=== PATIENT | female | born 1985 | race American Indian/Alaskan Native ===

== ENCOUNTER 2018-07-29 19:15 | Emergency (ER) | payer SELFPAY ==
[2018-07-29] MEDS ORDERED: Sodium Chloride 0.9% 10 ML Syringe FLUSH PRN (19:29)
[2018-07-29] MEDS ORDERED: Sodium Chloride 0.9% 1,000 ML IV SCH (19:30)
[2018-07-29] MEDS ORDERED: cefTRIAXone 2 GM Vial IV ONE (19:54)
[2018-07-29] MEDS ORDERED: Ketorolac 30 MG/ML SDV IVPUSH ONE (19:55)
[2018-07-29] MEDS ORDERED: cefTRIAXone 2 GM in Sodium Chloride 0.9% 100 ML IV ONE (20:49)
[2018-07-29] MEDS ORDERED: Ketorolac 60 MG/2 ML SDV IM ONE (20:53)
[2018-07-29] MEDS ORDERED: Phenazopyridine 95 MG Tab ONE (20:57)
[2018-07-29] MEDS ORDERED: cefTRIAXone 2 GM, Lidocaine 1% 2.1 ML IM SCH ×2 (21:00)
[2018-07-29] MEDS ORDERED: Phenazopyridine 95 MG Tab PO ONE (21:04)
--- NOTE | 2018-07-29 21:18 | EDM.PDOC ---
ED HPI GENERAL MEDICAL PROBLEM - General Chief Complaint: Abdominal Pain Stated Complaint: LEFT FRONT & SIDE PAIN Time Seen by Provider: 07/29/18 19:24 Source of Information: Reports: Patient History Limitations: Reports: No Limitations - History of Present Illness INITIAL COMMENTS - FREE TEXT/NARRATIVE: 32 y/o female presents with cc dysuria, lower abdominal pain and back pain for the past 5 days. She states she saw her PCP 3 days ago and was started on Amoxicillin. She states she is having chills and feels feverish but hasn't taken her temperature. 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 Onset Date: 07/25/18 Onset Time: 12:00 Duration: Getting Worse Location: Reports: Abdomen, Back Quality: Reports: Ache Severity: Mild Improves with: Reports: None Worsens with: Reports: None Associated Symptoms: Reports: Fever/Chills. Denies: Chest Pain, Cough, Nausea/ Vomiting, Shortness of Breath, Weakness Left Abdomen Pain Score (Numeric/FACES): 8 - Related Data Allergies Allergy/AdvReac Type Severity Reaction Status Date / Time ibuprofen [From Motrin] Allergy Nausea Verified 07/29/18 19:29 Home Meds: Home Meds Amoxicillin 500 mg PO BID 07/29/18 [History] Buprenorphine HCl/Naloxone HCl [Suboxone 4 mg-1 mg Sl Film] 1 applic PO BID 04/18 [History] Phenazopyridine HCl [Pyridium] 200 mg PO BID 3 Days #6 tablet 07/29/18 [Rx] Venlafaxine [Effexor] 225 mg PO DAILY 07/29/18 [History] lamoTRIgine [Lamictal] 100 mg PO DAILY 07/29/18 [History] Past Medical History Genitourinary History: Reports: UTI, Recurrent Psychiatric History: Reports: Anxiety, Depression - Past Surgical History GI Surgical History: Reports: Cholecystectomy Social & Family History - Tobacco Use Smoking Status *Q: Current Every Day Smoker Years of Tobacco use: 15 Packs/Tins Daily: 1 - Caffeine Use Caffeine Use: Reports: Coffee, Energy Drinks, Soda, Tea - Recreational Drug Use Recreational Drug Use: No ED ROS GENERAL - Review of Systems Review Of Systems: See Below Constitutional: Reports: Fever, Chills HEENT: Reports: No Symptoms Respiratory: Denies: Shortness of Breath Cardiovascular: Denies: Chest Pain Endocrine: Reports: No Symptoms GI/Abdominal: Reports: Abdominal Pain (lower pelvic pain). Denies: Constipation , Diarrhea, Decreased Appetite, Vomiting : Reports: Dysuria, Flank Pain, Frequency, Urgency Musculoskeletal: Reports: No Symptoms Skin: Reports: No Symptoms Neurological: Reports: No Symptoms Psychiatric: Reports: No Symptoms Hematologic/Lymphatic: Reports: No Symptoms Immunologic: Reports: No Symptoms ED EXAM, RENAL/ - Physical Exam Exam: See Below General Appearance: Alert, WD/WN, No Apparent Distress Neck: Normal Inspection, Supple, Non-Tender, Full Range of Motion Respiratory/Chest: No Respiratory Distress, Lungs Clear, Normal Breath Sounds, No Accessory Muscle Use, Chest Non-Tender Cardiovascular: Normal Peripheral Pulses, Regular Rate, Rhythm, No Edema, No Gallop, No JVD, No Murmur, No Rub GI/Abdominal: Normal Bowel Sounds, Soft, Non-Tender, No Organomegaly, No Distention, No Abnormal Bruit, No Mass, Pelvis Stable Back Exam: Normal Inspection, Full Range of Motion Extremities: Normal Inspection, Normal Range of Motion Neurological: Alert, Oriented, CN II-XII Intact, Normal Cognition, Normal Gait, Normal Reflexes Psychiatric: Normal Affect, Normal Mood Skin Exam: Warm, Dry, Intact, Normal Color, No Rash Lymphatic: No Adenopathy Course - Vital Signs Last Recorded V/S: Last Vital Signs Temp 97.2 F 07/29/18 19:23 Pulse 73 07/29/18 19:23 Resp 20 07/29/18 19:23 BP 106/65 07/29/18 19:23 Pulse Ox 100 07/29/18 19:23 - Orders/Labs/Meds Orders: Active Orders 24 hr Category Date Time Status Sodium Chloride 0.9% [Normal Saline] 1,000 ml Med 07/29/18 19:30 Active IV ASDIRECTED Sodium Chloride 0.9% [Saline Flush] Med 07/29/18 19:29 Active 10 ml FLUSH ASDIRECTED PRN cefTRIAXone [Rocephin] 2 gm Med 07/29/18 20:49 Active Sodium Chloride 0.9% [Normal Saline] 100 ml IV ONETIME cefTRIAXone [Rocephin] 2 gm Med 07/29/18 21:00 Active Lidocaine 1% [Xylocaine 1%] 2.1 ml IM Q24H Saline Lock Insert [OM.PC] Routine Oth 07/29/18 19:29 Ordered Medication Orders Ceftriaxone Sodium 2 gm/ (Lidocaine HCl 2.1 ml) 0 gm IM Q24H MAGO Last Admin: 07/29/18 21:06 Dose: Not Given Sodium Chloride (Normal Saline) 1,000 mls @ 999 mls/hr IV ASDIRECTED MAGO Ceftriaxone Sodium 2 gm/ (Sodium Chloride) 100 mls @ 200 mls/hr IV ONETIME ONE Stop: 07/29/18 21:18 Last Admin: 07/29/18 20:51 Dose: Not Given Sodium Chloride (Saline Flush) 10 ml FLUSH ASDIRECTED PRN PRN Reason: Keep Vein Open Labs: Laboratory Tests 07/29/18 07/29/18 07/29/18 Range/Units 19:50 19:50 20:20 WBC 4.75 (3.98-10.04) K/mm3 RBC 5.08 (3.98-5.22) M/mm3 Hgb 13.4 (11.2-15.7) gm/L Hct 40.9 (34.1-44.9) % MCV 80.5 (79.4-94.8) fl MCH 26.4 (25.6-32.2) pg MCHC 32.8 (32.2-35.5) g/dl RDW Std Deviation 42.4 (36.4-46.3) fL Plt Count 224 (182-369) K/mm3 MPV 10.2 (9.4-12.3) fl Neut % (Auto) 55.1 (34.0-71.1) % Lymph % (Auto) 35.2 (19.3-51.7) % Bartholomew % (Auto) 7.2 (4.7-12.5) % Eos % (Auto) 1.7 (0.7-5.8) Baso % (Auto) 0.6 (0.1-1.2) % Neut # (Auto) 2.62 (1.56-6.13) K/mm3 Lymph # (Auto) 1.67 (1.18-3.74) K/mm3 Bartholomew # (Auto) 0.34 (0.24-0.36) K/mm3 Eos # (Auto) 0.08 (0.04-0.36) K/mm3 Baso # (Auto) 0.03 (0.01-0.08) K/mm3 Sodium (136-145) mEq/L Potassium (3.5-5.1) mEq/L Chloride (98-107) mEq/L Carbon Dioxide (21-32) mEq/L Anion Gap (5-15) BUN (7-18) mg/dL Creatinine (0.55-1.02) mg/dL Est Cr Clr Drug Dosing mL/min Estimated GFR (MDRD) (>60) mL/min BUN/Creatinine Ratio (14-18) Glucose (74-106) mg/dL Calcium (8.5-10.1) mg/dL Total Bilirubin (0.2-1.0) mg/dL AST (15-37) U/L ALT (14-59) U/L Alkaline Phosphatase (46-116) U/L Total Protein (6.4-8.2) g/dl Albumin (3.4-5.0) g/dl Globulin gm/dL Albumin/Globulin Ratio (1-2) Urine Color Yellow (Yellow) Urine Appearance Clear (Clear) Urine pH 6.0 (5.0-8.0) Ur Specific Willcox > or = 1.030 (1.005-1.030) Urine Protein Trace H (Negative) Urine Glucose (UA) Negative (Negative) Urine Ketones Negative (Negative) Urine Occult Blood Negative (Negative) Urine Nitrite Negative (Negative) Urine Bilirubin Negative (Negative) Urine Urobilinogen 1.0 (0.2-1.0) Ur Leukocyte Esterase Negative (Negative) Urine RBC 0-5 (0-5) /hpf Urine WBC 0-5 (0-5) /hpf Ur Squamous Epith Cells 0-5 (0-5) /hpf Urine Bacteria Few H (FEW) /hpf Urine Mucus Moderate H (FEW) /hpf Urine HCG, Qual Negative (NEGATIVE) 07/29/18 Range/Units 20:20 WBC (3.98-10.04) K/mm3 RBC (3.98-5.22) M/mm3 Hgb (11.2-15.7) gm/L Hct (34.1-44.9) % MCV (79.4-94.8) fl MCH (25.6-32.2) pg MCHC (32.2-35.5) g/dl RDW Std Deviation (36.4-46.3) fL Plt Count (182-369) K/mm3 MPV (9.4-12.3) fl Neut % (Auto) (34.0-71.1) % Lymph % (Auto) (19.3-51.7) % Bartholomew % (Auto) (4.7-12.5) % Eos % (Auto) (0.7-5.8) Baso % (Auto) (0.1-1.2) % Neut # (Auto) (1.56-6.13) K/mm3 Lymph # (Auto) (1.18-3.74) K/mm3 Bartholomew # (Auto) (0.24-0.36) K/mm3 Eos # (Auto) (0.04-0.36) K/mm3 Baso # (Auto) (0.01-0.08) K/mm3 Sodium 140 (136-145) mEq/L Potassium 4.1 (3.5-5.1) mEq/L Chloride 104 (98-107) mEq/L Carbon Dioxide 28 (21-32) mEq/L Anion Gap 12.1 (5-15) BUN 13 (7-18) mg/dL Creatinine 0.8 (0.55-1.02) mg/dL Est Cr Clr Drug Dosing 93.63 mL/min Estimated GFR (MDRD) > 60 (>60) mL/min BUN/Creatinine Ratio 16.3 (14-18) Glucose 98 (74-106) mg/dL Calcium 8.7 (8.5-10.1) mg/dL Total Bilirubin 0.4 (0.2-1.0) mg/dL AST 32 (15-37) U/L ALT 44 (14-59) U/L Alkaline Phosphatase 116 (46-116) U/L Total Protein 7.8 (6.4-8.2) g/dl Albumin 3.6 (3.4-5.0) g/dl Globulin 4.2 gm/dL Albumin/Globulin Ratio 0.9 L (1-2) Urine Color (Yellow) Urine Appearance (Clear) Urine pH (5.0-8.0) Ur Specific Willcox (1.005-1.030) Urine Protein (Negative) Urine Glucose (UA) (Negative) Urine Ketones (Negative) Urine Occult Blood (Negative) Urine Nitrite (Negative) Urine Bilirubin (Negative) Urine Urobilinogen (0.2-1.0) Ur Leukocyte Esterase (Negative) Urine RBC (0-5) /hpf Urine WBC (0-5) /hpf Ur Squamous Epith Cells (0-5) /hpf Urine Bacteria (FEW) /hpf Urine Mucus (FEW) /hpf Urine HCG, Qual (NEGATIVE) Meds: Medications Generic Name Dose Route Start Last Admin Trade Name Quentinq PRN Reason Stop Dose Admin Ceftriaxone Sodium 2 gm/ 0 gm 07/29/18 21:00 07/29/18 21:06 Lidocaine HCl 2.1 ml IM Not Given Q24H MAGO Sodium Chloride 1,000 mls @ 999 mls/hr 07/29/18 19:30 Normal Saline IV ASDIRECTED MAGO Ceftriaxone Sodium 2 gm/ 100 mls @ 200 mls/hr 07/29/18 20:49 07/29/18 20:51 Sodium Chloride IV 07/29/18 21:18 Not Given ONETIME ONE Sodium Chloride 10 ml 07/29/18 19:29 Saline Flush FLUSH ASDIRECTED PRN Keep Vein Open Discontinued Medications Generic Name Dose Route Start Last Admin Trade Name Quentinq PRN Reason Stop Dose Admin Ceftriaxone Sodium 2 gm 07/29/18 19:54 07/29/18 20:49 Rocephin IV 07/29/18 19:55 Not Given ONETIME ONE Ketorolac Tromethamine 30 mg 07/29/18 19:55 07/29/18 20:51 Toradol IVPUSH 07/29/18 19:56 Not Given ONETIME ONE Ketorolac Tromethamine 60 mg 07/29/18 20:53 07/29/18 21:05 Toradol IM 07/29/18 20:54 60 mg ONETIME ONE Administration Phenazopyridine HCl 95 mg 07/30/18 09:00 Urinary Pain Relief PO TIDPC MAGO Phenazopyridine HCl Confirm 07/29/18 20:57 07/29/18 21:06 Urinary Pain Relief Administered 07/29/18 20:58 Not Given Dose 95 mg .ROUTE .STK-MED ONE Phenazopyridine HCl 95 mg 07/29/18 21:04 07/29/18 21:05 Urinary Pain Relief PO 07/29/18 21:05 95 mg ONETIME ONE Administration - Re-Assessments/Exams Free Text/Narrative Re-Assessment/Exam: 07/29/18 21:14 Her WBC 4.78, RBC 5.08 H& H 13/40.5 NA + 140 K+ 4.1 CHL 104 HEAD 28 BUN 13 creatine 0.8 urinalysis was unremarkable except + protein. I think her pain is due to bladder spasms and cystitis. I will discharge home with instructions to increase fluid intake. I will give her a RX for Pyridium. I instructed her to follow up with her PCP. Instructed to return to the ER for any new or acute worsening symptoms. Patient verbalized understanding and is comfortable with plan for discharge. Departure - Departure Time of Disposition: 21:18 Disposition: Home, Self-Care 01 Condition: Good Clinical Impression: Cystitis - Discharge Information Prescriptions: Phenazopyridine HCl [Pyridium] 200 mg PO BID 3 Days #6 tablet Instructions: Urinary Tract Infection, Adult Referrals: PCP,None [Primary Care Provider] - Additional Instructions: You have been diagnosis with cystitis. Take the Pyridium as prescribed, increase your fluid intake. Follow up with your PCP. Return to the ER for any new or acute worsening symptoms. - My Orders Last 24 Hours: My Active Orders 07/29/18 19:29 Sodium Chloride 0.9% [Saline Flush] 10 ml FLUSH ASDIRECTED PRN Saline Lock Insert [OM.PC] Routine 07/29/18 19:30 Sodium Chloride 0.9% [Normal Saline] 1,000 ml IV ASDIRECTED 07/29/18 20:49 cefTRIAXone [Rocephin] 2 gm Sodium Chloride 0.9% [Normal Saline] 100 ml IV ONETIME 07/29/18 21:00 cefTRIAXone [Rocephin] 2 gm Lidocaine 1% [Xylocaine 1%] 2.1 ml IM Q24H - Assessment/Plan Last 24 Hours: My Active Orders 07/29/18 19:29 Sodium Chloride 0.9% [Saline Flush] 10 ml FLUSH ASDIRECTED PRN Saline Lock Insert [OM.PC] Routine 07/29/18 19:30 Sodium Chloride 0.9% [Normal Saline] 1,000 ml IV ASDIRECTED 07/29/18 20:49 cefTRIAXone [Rocephin] 2 gm Sodium Chloride 0.9% [Normal Saline] 100 ml IV ONETIME 07/29/18 21:00 cefTRIAXone [Rocephin] 2 gm Lidocaine 1% [Xylocaine 1%] 2.1 ml IM Q24H
[2018-07-30] MEDS ORDERED: Phenazopyridine 95 MG Tab PO SCH (09:00)
== END 2018-07-29 21:25 | disposition home or self-care (01) ==
LOC: JD.ED 19:15
DX: N30.90 Cystitis, unspecified without hematuria (principal); F17.210 Nicotine dependence, cigarettes, uncomplicated; Z88.6 Allergy status to analgesic agent
CPT/HCPCS: 36415; 80053; 81001; 81025; 85025; 96372; 99284; A9270; J1885